=== PATIENT | female | born 1965 | race African-American/Black ===

== ENCOUNTER 2019-12-14 21:06 | Emergency (ER) | payer OTHER ==
[~2019-12-14] VITALS: Ht 162.6 cm; Wt 85.3 kg
[2019-12-14 21:59] LABS: HEMATOCRIT 37.8 % (37.0-47.0); HEMOGLOBIN 12.4 gm/dL (12.0-15.0); MCHC 32.8 g/dL (28.0-37.0); MCV 91.5 fL (80.0-100.0); PLATELET COUNT 219 thou/uL (150-400); RBC 4.13 mil/uL (4.20-5.00); RDW 13.4 % (10.5-14.5); WBC 7.8 thou/uL (4.0-11.0)
[2019-12-14 22:03] LABS: ANION GAP 11 mmol/L (7-16); BUN 15 mg/dL (7-18); CALCIUM 9.1 mg/dL (8.5-10.1); CHLORIDE 98 mmol/L (98-107); CO2 27 mmol/L (21-32); GLUCOSE 169 mg/dL (74-106); SODIUM 136 mmol/L (136-145)
[2019-12-14 22:09] LABS: ALBUMIN 3.4 g/dL (3.4-5.0); DIRECT BILIRUBIN < 0.1 mg/dL (<0.1-0.2); SGOT 62 U/L (15-37); SGPT 68 U/L (30-65); TOTAL BILIRUBIN 0.3 mg/dL (<0.1-1.0); TOTAL PROTEIN 8.9 g/dL (6.4-8.2)
[2019-12-14 22:11] LABS: URINE BILIRUBIN NEGATIVE (Negative); URINE BLOOD NEGATIVE (Negative); URINE CLARITY CLEAR; URINE COLOR YELLOW; URINE GLUCOSE-RANDOM* 2+ (Negative); URINE KETONES NEGATIVE (Negative); URINE LEUKOCYTES-REFLEX NEGATIVE (Negative); URINE NITRITE-REFLEX NEGATIVE (Negative); URINE PROTEIN (DIPSTICK) 2+ (Negative); URINE SPECIFIC GRAVITY 1.015 (1.005-1.035); URINE UROBILINOGEN 0.2 E.U./dl (0.2-1.0)
[2019-12-14] MEDS ORDERED: LEVEMIR100 UNIT/2 SUBQ (22:18)
[2019-12-14] MEDS ORDERED: ADVAIR 250-501 EACH INH (22:18)
[2019-12-14] MEDS ORDERED: ALMACONE LIQUI355 ML PO (22:19)
[2019-12-14 22:20] LABS: CASTS None Seen /LPF (None Seen); SQUAMOUS 4-10 Moderate /LPF (0-3)
[2019-12-14] MEDS ORDERED: ANORO ELLIPTA1 EACH INH (22:20)
[2019-12-14 22:21] LABS: CRYSTALS None Seen /LPF (None Seen); URINE RBC None Seen /HPF (0-2); URINE WBC-REFLEX None Seen /HPF (0-5)
[2019-12-14] MEDS ORDERED: CLONAZEPAM 1 MG1 M1 PO (22:21)
[2019-12-14] MEDS ORDERED: FML 0.1% 10ML10 M1 LT. EYE (22:24)
[2019-12-14] MEDS ORDERED: FLONASE 0.05%50 MCG NASAL (22:25)
[2019-12-14 22:26] LABS: ABSOLUTE NEUTROPHILS 5.4 thou/uL (1.4-8.2); ANISOCYTOSIS 1+
[2019-12-14] MEDS ORDERED: GABAPENTIN100 MG PO (22:26)
[2019-12-14 22:27] LABS: LARGE PLATELETS OCCASIONAL
[2019-12-14] MEDS ORDERED: ONDANSETRON HCL4 M3 PO (22:28)
[2019-12-15 00:27] VITALS: BP 122/77
== END 2019-12-15 00:29 | disposition home or self-care (01) ==
LOC: ER 21:06
PROVIDERS: Emergency Medicine
DX: S09.8XXA Other specified injuries of head, initial encounter (principal); E11.9 Type 2 diabetes mellitus without complications; Z79.4 Long term (current) use of insulin; W18.39XA Other fall on same level, initial encounter; Y92.89 Other specified places as the place of occurrence of the external cause; Y93.89 Activity, other specified; Y99.8 Other external cause status

== ENCOUNTER 2019-12-28 09:23 | Emergency (ER) | payer OTHER ==
[~2019-12-28] VITALS: Ht 162.6 cm; Wt 81.0 kg
[~2019-12-28 09:23] MED LIST: ADVAIR 250-501 EACH INH; ALMACONE LIQUI355 ML PO; ANORO ELLIPTA1 EACH INH; CLONAZEPAM 1 MG1 M1 PO; FLONASE 0.05%50 MCG NASAL; FML 0.1% 10ML10 M1 LT. EYE; GABAPENTIN100 MG PO; LEVEMIR100 UNIT/2 SUBQ; ONDANSETRON HCL4 M3 PO
[2019-12-28 09:56] VITALS: BP 132/73
== END 2019-12-28 10:51 | disposition home or self-care (01) ==
LOC: ER 09:23
DX: Z00.00 Encounter for general adult medical examination without abnormal findings (principal); E11.39 Type 2 diabetes mellitus with other diabetic ophthalmic complication; H40.9 Unspecified glaucoma; H42 Glaucoma in diseases classified elsewhere; E78.5 Hyperlipidemia, unspecified; K21.9 Gastro-esophageal reflux disease without esophagitis; R56.9 Unspecified convulsions; F32.9 Major depressive disorder, single episode, unspecified; F41.9 Anxiety disorder, unspecified; F17.210 Nicotine dependence, cigarettes, uncomplicated; F20.9 Schizophrenia, unspecified